=== PATIENT | female | born 1990 | race Caucasian/White ===

== ENCOUNTER 2023-12-15 11:36 | Emergency (ER) | payer MEDICAID ==
[~2023-12-15] VITALS: Ht 165.1 cm; Wt 60.0 kg
[2023-12-15 11:45] VITALS: BP 130/79; TEMP 98.7; O2SAT 99
[2023-12-15 11:46] VITALS: PULSE 100; RESP 18
[2023-12-15] MEDS ORDERED: IBUP-2029 MT (12:36)
[2023-12-15] MEDS: IBUPROFEN 600MG TABLET PO ONE (13:15)
== END 2023-12-15 13:33 | disposition home or self-care (01) ==
LOC: ER 11:36
DX: M77.02 Medial epicondylitis, left elbow (principal); D64.9 Anemia, unspecified
CPT/HCPCS: 99282